=== PATIENT | male | born 2000 | race African-American/Black ===

== ENCOUNTER 2021-01-14 02:17 | Emergency (ER) | payer MEDICAID ==
[~2021-01-14] VITALS: Ht 172.7 cm; Wt 69.4 kg
[2021-01-14 02:45] LABS: HEMATOCRIT 41.7 % (42.0-52.0); HEMOGLOBIN 14.4 gm/dL (14.0-18.0); MCH 30.3 pg (26.0-34.0); MCHC 34.6 g/dL (28.0-37.0); MCV 87.7 fL (80.0-100.0); MPV 8.1 fl. (7.2-11.1); RBC 4.75 mil/uL (4.50-6.00); RDW-CV 13.1 % (10.5-14.5); WBC 4.9 thou/uL (4.0-11.0)
[2021-01-14 02:51] LABS: CALCIUM 8.8 mg/dL (8.5-10.1); CREATININE 0.9 mg/dL (0.6-1.3); POTASSIUM 3.7 mmol/L (3.5-5.1)
[2021-01-14 02:56] LABS: ALBUMIN 4.1 g/dL (3.4-5.0); TOTAL BILIRUBIN 0.5 mg/dL (<0.1-1.0); TOTAL PROTEIN 7.5 g/dL (6.4-8.2)
[2021-01-14 03:03] LABS: ALCOHOL < 10 mg/dL (<10); SALICYLATE < 2.8 mg/dL (2.8-20.0)
[2021-01-14 03:04] LABS: ACETAMINOPHEN < 2 ug/mL (10-30)
[2021-01-14 03:26] LABS: URINE BILIRUBIN NEGATIVE (Negative); URINE BLOOD NEGATIVE (Negative); URINE CLARITY CLEAR; URINE COLOR YELLOW; URINE GLUCOSE-RANDOM NEGATIVE (Negative); URINE KETONES NEGATIVE (Negative); URINE LEUKOCYTES NEGATIVE (Negative); URINE NITRITE NEGATIVE (Negative); URINE PROTEIN NEGATIVE (Negative); URINE UROBILINOGEN 0.2 E.U./dl (0.2-1.0)
[2021-01-14 03:33] LABS: AMP/METHAMP Negative (Negative); BARBITURATES Negative (Negative); BENZODIAZEPINES Negative (Negative); COCAINE Negative (Negative); METHADONE Negative (Negative); OPIATES Negative (Negative); PCP Negative (Negative); THC POSITIVE (Negative)
[2021-01-14 08:25] VITALS: BP 120/71
== END 2021-01-14 08:25 | disposition still patient (30) ==
LOC: M.ERS 02:17
PROVIDERS: Personal Emergency Response Attendant
DX: S51.812A Laceration without foreign body of left forearm, initial encounter (principal); Z20.822 Contact with and (suspected) exposure to COVID-19; R45.851 Suicidal ideations; R51.9 Headache, unspecified; X83.8XXA Intentional self-harm by other specified means, initial encounter; Y93.89 Activity, other specified; Y92.89 Other specified places as the place of occurrence of the external cause; Y99.8 Other external cause status